=== PATIENT | female | born 1965 | race Asian ===

== ENCOUNTER → 2019-01-03 | Outpatient (CLI) | payer BC | LOC: MC.RAD 09:14 | DX: Z12.31 Encounter for screening mammogram for malignant neoplasm of breast (principal) ==

== ENCOUNTER → 2019-01-10 | Outpatient (CLI) | payer BC | LOC: MC.RAD 13:00 | DX: N63.10 Unspecified lump in the right breast, unspecified quadrant (principal) ==

== ENCOUNTER → 2019-10-16 | Outpatient (CLI) | payer BC | LOC: MC.RAD 08:55 | DX: N63.11 Unspecified lump in the right breast, upper outer quadrant (principal); R92.2 Inconclusive mammogram ==